=== PATIENT | male | born 1995 | race Two or more races ===

== ENCOUNTER 2017-05-03 08:18 | Emergency (ER) | payer SELFPAY ==
[2017-05-03 08:25] VITALS: BP 147/97; PULSE 65; RESP 15; TEMP 98.4; O2SAT 97
--- NOTE | 2017-05-03 08:49 | EDPHY ---
HPI/HX/ROS/PE/MDM Narrative: CHIEF COMPLAINT: Finger laceration HISTORY OF PRESENT ILLNESS: The patient is a 21 y/o male complaining of a left index finger laceration. 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 He controlled the bleeding with direct pressure and his school requested that he go to the ED for evaluation. He denies weakness, paresthesias, or other complaints. No medical history or anticoagulant use. He thinks his tetanus is up-to-date. No fever, chills, chest pain, shortness of breath, palpitations, vomiting, diarrhea, urinary complaints, headache, lightheadedness. REVIEW OF SYSTEMS: Aside from elements discussed in the HPI, a comprehensive 10-point review of systems was reviewed and is negative. PAST MEDICAL HISTORY: Denies SOCIAL HISTORY: In [employer]. 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 VITAL SIGNS: Reviewed by me GENERAL: Well-developed, well-nourished, resting comfortably in no respiratory distress. HEENT: Atraumatic. LUNGS: No respiratory distress CARDIAC: Normal capillary refill EXTREMITIES: Left index finger: 0.5cm linear laceration that extends just over distal phalanx, does not involve the nail. Otherwise no trauma. No edema. Range of motion is normal throughout. NEURO: Alert and oriented, grossly nonfocal. SKIN: Warm and dry, no rash. PSYCHIATRIC: Normal mentation, no agitation. Portions of this note were transcribed by a nuclear medicine medical director. I personally performed a history, physical exam, medical decision making, and confirmed accuracy of information the transcribed note. ED Course: This is a healthy 21 y/o male who presents with an unintentional laceration to his left index finger. He has a linear 0.5cm laceration just over the distal phalanx that does not involve the nail. No other trauma. He is neurovascularly intact. Discussed different repair options with the patient and he opted for steristrips and bulky dressing. He understands he needs to keep the site clean and dry until healed. He will be discharged with standard laceration care and return precautions. MDM: Differential diagnosis for the patient's injury was considered including but not limited to contusion, abrasion, laceration, fracture, open fracture, or dislocation. General Time Seen by Provider: 05/03/17 08:42 Initial Vital Signs: Initial Vital Signs Temperature (C) 36.9 C 05/03/17 08:22 Heart Rate 65 05/03/17 08:22 Respiratory Rate 15 05/03/17 08:22 Blood Pressure 147/97 H 05/03/17 08:22 O2 Sat (%) 97 05/03/17 08:22 O2 Delivery Mode Nasal Cannula Allergies/Adverse Reactions: No Known Allergies Allergy (Unverified 05/03/17 08:22) Home Medications: Medication Instructions Recorded NK [No Known Home Meds] 05/03/17 Departure - Departure Disposition: Home, Routine, Self-Care Clinical Impression: Laceration of index finger Qualifiers: Encounter type: initial encounter Damage to nail status: without damage Foreign body presence: unspecified Laterality: left Qualified Code(s): S61.211A - Laceration without foreign body of left index finger without damage to nail, initial encounter Condition: Good Instructions: Laceration (ED) Additional Instructions: 1. Keep site clean and dry. Keep bandage over it for the next 3-4 days especially if your hand is going to be wet. 2. Use Tylenol or ibuprofen as directed on the packaging if needed for pain. 3. Return to the ED or follow up with your PCP if you developed severe pain, dramatic increase in redness or swelling, fever, weakness or numbness in your finger tip, or other worsening of condition. Referrals: Sid Chun DO [Doctor of Osteopathy] - As per Instructions Stand Alone Forms: Work Limited Duty Report Scribed for: Tiffany Berry Report Scribed by: Roberta Reich Date of Report: 05/03/17 Time of Report: 08:49
== END 2017-05-03 09:05 | disposition home or self-care (01) ==
DX: S61.211A Laceration without foreign body of left index finger without damage to nail, initial encounter (principal); W26.0XXA Contact with knife, initial encounter; Y92.218 Other school as the place of occurrence of the external cause; Y99.0 Civilian activity done for income or pay; Y93.G1 Activity, food preparation and clean up